=== PATIENT | female | born 1975 | race African-American/Black ===

== ENCOUNTER 2020-07-07 13:13 | Inpatient (IN) ==
[2020-07-07 14:14] LABS: Basophils % 0.1 % (0.0-0.8); Eosinophils # 0.2 10*3/uL (0.0-0.87); Eosinophils % 1.7 % (0.00-10.9); Hemoglobin 14.2 GM/DL (12.0-16.0); Immature Granulocytes % 0.4 %; Immature Granulocytes Absolute 0.05 #; Lymphocytes # 2.9 10*3/uL (1.4-4.0); Lymphocytes % 21.4 % (21.3-54.2); Mean Platelet Volume 9.9 FL (9.6-12.0); Monocytes % 10.1 % (1.7-12.7); Neutrophils % 66.3 % (38.7-73.9); Platelet Count 302 T/CUMM (130-400); Red Blood Count 5.27 MC/CUMM (3.8-5.5); White Blood Count 13.4 T/CUMM (4-12)
[2020-07-07 14:22] LABS: INR 1.1; PT Patient Result 11.9 SECS (9.8-11.9); Partial Thromboplastin Time 28.5 SECS (23.9-33.8)
[2020-07-07 14:29] LABS: Albumin 3.4 G/DL (3.4-5.0); Bilirubin,Total 0.6 MG/DL (0.2-1.0); Calcium 8.6 MG/DL (8.5-10.1); Osmolality,Calculated 278.3 MOS/KG (273-304); Total Protein 7.7 G/DL (6.4-8.3)
[2020-07-07 14:40] LABS: Ferritin 30.5 ng/ml (8-252)
[2020-07-07 16:21] LABS: ABG Base Excess 14.2 MMOL/L (-2.5-2.5); ABG HCO3 37.9 MMOL/L (20-26); ABG Oxygen Saturation 91.8 % (95-100); ABG PH 7.214 (7.35-7.45); ABG TCO2 44.1 MMOL/L (23-27)
[2020-07-07 16:59] LABS: ABG Base Excess 12.9 MMOL/L (-2.5-2.5); ABG HCO3 36.8 MMOL/L (20-26); ABG Oxygen Saturation 97.8 % (95-100); ABG TCO2 44.6 MMOL/L (23-27)
[2020-07-07 17:01] LABS: ABG PH 7.167 (7.35-7.45)
[2020-07-07] MEDS ORDERED: DEXTROSE 50% 25 GM/50 ML VIAL IV PRN (17:53)
[2020-07-07] MEDS ORDERED: GLUCAGON 1 MG VIAL IM PRN (17:53)
[2020-07-07] MEDS: ALBUTEROL/IPRATROPIUM 3 ML NEB RESP TX SCH (20:40)
[2020-07-07] MEDS: ENOXAPARIN 40 MG/0.4 ML SYRINGE SUBCUT SCH (21:29)
[2020-07-08] MEDS: ALBUTEROL/IPRATROPIUM 3 ML NEB RESP TX SCH ×4 (01:29→18:57)
[2020-07-08 03:55] LABS: Allen Test Positive; Pt O2 Delivery Device BIPAP
[2020-07-08 03:57] LABS: ABG Base Excess 18.6 MMOL/L (-2.5-2.5); ABG HCO3 50.1 MMOL/L (20-26); ABG Oxygen Saturation 95.8 % (95-100); ABG PH 7.311 (7.35-7.45); ABG PO2 86.7 MM HG (80-95); ABG TCO2 53.2 MMOL/L (23-27)
[2020-07-08 05:03] LABS: ABG PCO2 101.5 MM HG (35-48)
[2020-07-08 06:52] LABS: Calcium 8.8 MG/DL (8.5-10.1); Osmolality,Calculated 273.5 MOS/KG (273-304)
[2020-07-08] MEDS: PANTOPRAZOLE 40 MG TABLET PO SCH (10:51)
[2020-07-08] MEDS ORDERED: FUROSEMIDE 40 MG/4 ML VIAL IV ONE (15:00)
[2020-07-08] MEDS: methylPREDNISolone SOD SUC 40 MG/1 ML VIAL IV SCH ×2 (17:12→22:18)
[2020-07-08] MEDS: ENOXAPARIN 40 MG/0.4 ML SYRINGE SUBCUT SCH (22:18)
[2020-07-09] MEDS: ALBUTEROL/IPRATROPIUM 3 ML NEB RESP TX SCH ×2 (00:49→07:30)
[2020-07-09] MEDS ORDERED: methylPREDNISolone SOD SUC 40 MG/1 ML VIAL ONE (06:41)
[2020-07-09] MEDS: methylPREDNISolone SOD SUC 40 MG/1 ML VIAL IV SCH ×2 (06:41→14:27)
[2020-07-09] MEDS ORDERED: THEOPHYLLINE ER (24 HR) 400 MG CAPSULE PO SCH (09:00)
[2020-07-09] MEDS: PANTOPRAZOLE 40 MG TABLET PO SCH (10:35)
[2020-07-09 11:59] VITALS: BP 141/78
== END 2020-07-09 15:55 | disposition home or self-care (01) | DRG 206 ==
LOC: N.ED 13:13 → SUATTDRO 18:10 → N.EDINP 18:10 → N.3E 19:58
PROVIDERS: ADMIT Internal Medicine; ATTEND Internal Medicine

== ENCOUNTER 2021-03-26 11:19 | Observation (INO) ==
[2021-03-26 11:56] LABS: Basophils % 0.1 % (0.0-0.8); Eosinophils # 0.2 10*3/uL (0.0-0.87); Eosinophils % 2.4 % (0.00-10.9); Hematocrit 35.7 VOL% (35.7-47.0); Immature Granulocytes % 0.6 %; Immature Granulocytes Absolute 0.05 #; Mean Corpuscular HGB Conc 30.8 GM/DL (32-36); Mean Corpuscular Volume 90.4 FL (87-102); Monocytes % 6.1 % (1.7-12.7); Neutrophils % 67.8 % (38.7-73.9); Platelet Count 282 T/CUMM (130-400); Red Blood Count 3.95 MC/CUMM (3.8-5.5); Red Cell Distribution Width 14.6 % (9.3-17.3); White Blood Count 8.7 T/CUMM (4-12)
[2021-03-26 12:17] LABS: Albumin 3.5 G/DL (3.4-5.0); Bilirubin,Total 0.4 MG/DL (0.20-1.00); Calcium 8.8 MG/DL (8.5-10.1); Osmolality,Calculated 281.1 MOS/KG (273-304); Potassium 3.8 MMOL/L (3.5-5.1); Total Protein 7.6 G/DL (6.4-8.2)
[2021-03-26 13:27] LABS: Bacteria,Urine Occasional /HPF (Few); Bilirubin,Urine Negative (Negative); Blood, Urine Negative (Negative); Glucose,Urine (UA) Negative (Negative); Hyaline Casts,Urine 1 /LPF (0-3); Ketones,Urine Negative (Negative); Mucus,Urine Occasional /LPF (Occasional); Nitrite,Urine Negative (Negative); Protein,Urine Negative; Squamous Epithelial Cell,Urine Few /HPF (0-10); Urine Appearance Slightly Hazy (Clear); Urine Color Yellow (Yellow); Urine Specific Gravity 1.014 (1.001-1.035); Urine Urobilinogen < 2.0 EU/DL (0.2-1.0)
[2021-03-26 13:31] LABS: Barbiturates Screen,Urine Negative (Negative); Benzodiazepines Screen,Urine Negative (Negative); Cannabinoid Screen,Urine Negative (Negative); Opiate Screen,Urine Negative (Negative); Phencyclidine Screen,Urine Negative (Negative)
[2021-03-26] MEDS ORDERED: cloNIDine 0.1 MG TABLET ONE (13:42)
[2021-03-26] MEDS ORDERED: cloNIDine 0.1 MG TABLET PO STA (13:47)
[2021-03-26] MEDS ORDERED: ONDANSETRON 4 MG/2 ML VIAL IV PRN (15:06)
[2021-03-26] MEDS ORDERED: GLUCAGON 1 MG VIAL IM PRN (15:06)
[2021-03-26] MEDS ORDERED: ACETAMINOPHEN 325 MG TABLET PO PRN (15:06)
[2021-03-26] MEDS ORDERED: DEXTROSE 50% 25 GM/50 ML VIAL IV PRN (15:06)
[2021-03-26] MEDS ORDERED: ALBUTEROL 2.5 MG/3 ML NEB RESP TX PRN (15:11)
[2021-03-26] MEDS ORDERED: atenoloL 25 MG TABLET PO SCH (15:30)
[2021-03-26] MEDS: amLODIPine 10 MG TABLET PO SCH (16:00)
[2021-03-26] MEDS: INSULIN REGULAR 100 UNIT/ML SUBCUT SCH ×2 (16:20→20:53)
[2021-03-26] MEDS: GABAPENTIN 300 MG CAPSULE PO SCH (20:52)
[2021-03-26] MEDS: DOCUSATE SODIUM 100 MG CAPSULE PO SCH (20:53)
[2021-03-27] MEDS: INSULIN REGULAR 100 UNIT/ML SUBCUT SCH ×4 (07:59→22:43)
[2021-03-27] MEDS: amLODIPine 10 MG TABLET PO SCH (09:36)
[2021-03-27] MEDS: ASPIRIN EC 81 MG TABLET PO SCH (09:36)
[2021-03-27] MEDS: PANTOPRAZOLE 40 MG TABLET PO SCH (09:36)
[2021-03-27] MEDS: atenoloL 25 MG TABLET PO SCH (09:36)
[2021-03-27] MEDS: DOCUSATE SODIUM 100 MG CAPSULE PO SCH ×2 (09:36→21:36)
[2021-03-27] MEDS: lisinopriL 20 MG TABLET PO SCH (09:36)
[2021-03-27] MEDS ORDERED: ROSUVASTATIN 20 MG TABLET PO SCH (21:00)
[2021-03-27] MEDS: GABAPENTIN 300 MG CAPSULE PO SCH (21:36)
[2021-03-28 05:35] LABS: Basophils % 0.2 % (0.0-0.8); Eosinophils # 0.2 10*3/uL (0.0-0.87); Eosinophils % 2.4 % (0.00-10.9); Hematocrit 33.1 VOL% (35.7-47.0); Hemoglobin 10.2 GM/DL (12.0-16.0); Immature Granulocytes % 0.4 %; Immature Granulocytes Absolute 0.04 #; Lymphocytes # 2.3 10*3/uL (1.4-4.0); Mean Corpuscular HGB Conc 30.8 GM/DL (32-36); Mean Corpuscular Volume 91.4 FL (87-102); Mean Platelet Volume 10.3 FL (9.6-12.0); Monocytes % 8.7 % (1.7-12.7); Neutrophils % 63.3 % (38.7-73.9); Platelet Count 258 T/CUMM (130-400); Red Blood Count 3.62 MC/CUMM (3.8-5.5); Red Cell Distribution Width 14.5 % (9.3-17.3); White Blood Count 9.3 T/CUMM (4-12)
[2021-03-28 06:08] LABS: Calcium 8.7 MG/DL (8.5-10.1); Osmolality,Calculated 283.1 MOS/KG (273-304); Potassium 3.8 MMOL/L (3.5-5.1)
[2021-03-28 09:01] VITALS: BP 138/97
[2021-03-28] MEDS: amLODIPine 10 MG TABLET PO SCH (09:14)
[2021-03-28] MEDS: atenoloL 25 MG TABLET PO SCH (09:15)
[2021-03-28] MEDS: PANTOPRAZOLE 40 MG TABLET PO SCH (09:15)
[2021-03-28] MEDS: DOCUSATE SODIUM 100 MG CAPSULE PO SCH (09:15)
[2021-03-28] MEDS: ASPIRIN EC 81 MG TABLET PO SCH (09:15)
[2021-03-28] MEDS: lisinopriL 20 MG TABLET PO SCH (09:15)
[2021-03-28] MEDS: INSULIN REGULAR 100 UNIT/ML SUBCUT SCH ×2 (10:45→13:05)
== END 2021-03-28 15:00 | disposition home or self-care (01) ==
LOC: N.ED 11:19 → N.EDINP 11:19 → N.TELEN 14:47
PROVIDERS: ADMIT Family Medicine; ATTEND Family Medicine

== ENCOUNTER 2021-09-01 12:44 | Observation (INO) ==
[2021-09-01 13:48] LABS: Albumin 3.6 G/DL (3.4-5.0); Bilirubin,Total 0.4 MG/DL (0.20-1.00); Calcium 9.5 MG/DL (8.5-10.1); Potassium 3.5 MMOL/L (3.5-5.1); Total Protein 8.4 G/DL (6.4-8.2)
[2021-09-01 14:00] LABS: Basophils % 0.2 % (0.0-0.8); Eosinophils # 0.2 10*3/uL (0.0-0.87); Eosinophils % 1.9 % (0.00-10.9); Hematocrit 38.1 VOL% (35.7-47.0); Hemoglobin 11.7 GM/DL (12.0-16.0); Immature Granulocytes % 0.4 %; Immature Granulocytes Absolute 0.04 #; Lymphocytes # 2.5 10*3/uL (1.4-4.0); Lymphocytes % 22.4 % (21.3-54.2); Mean Corpuscular HGB Conc 30.7 GM/DL (32-36); Mean Corpuscular Volume 91.1 FL (87-102); Mean Platelet Volume 10.2 FL (9.6-12.0); Monocytes % 5.9 % (1.7-12.7); Neutrophils % 69.2 % (38.7-73.9); Platelet Count 294 T/CUMM (130-400); Red Blood Count 4.18 MC/CUMM (3.8-5.5); Red Cell Distribution Width 14.4 % (9.3-17.3)
[2021-09-01] MEDS ORDERED: ACETAMINOPHEN 325 MG TABLET PO PRN (16:19)
[2021-09-01] MEDS ORDERED: ONDANSETRON 4 MG/2 ML VIAL IV PRN (16:19)
[2021-09-01] MEDS ORDERED: metFORMIN 500 MG TABLET PO SCH (17:00)
[2021-09-01 17:03] LABS: Bacteria,Urine Occasional /HPF (Few); Glucose,Urine (UA) Negative (Negative); Ketones,Urine Negative (Negative); Mucus,Urine Occasional /LPF (Occasional); Nitrite,Urine Negative (Negative); Protein,Urine Negative; RBC,Urine 4 /HPF (0-4); Squamous Epithelial Cell,Urine Occasional /HPF (0-10); Urine Appearance Clear (Clear); Urine Color Yellow (Yellow); Urine pH 7.5 (4.5-8.0)
[2021-09-01 17:04] LABS: Bilirubin,Urine Negative (Negative); Blood, Urine Trace mg/dL (Negative); Urine Urobilinogen 0.2 EU/DL (<2.0)
[2021-09-01] MEDS: THEOPHYLLINE ER 300 MG TABLET PO SCH (17:46)
[2021-09-01] MEDS ORDERED: ROSUVASTATIN 20 MG TABLET PO SCH (21:00)
[2021-09-01] MEDS ORDERED: GABAPENTIN 600 MG TABLET PO SCH (21:00)
[2021-09-02 01:07] LABS: Basophils % 0.3 % (0.0-0.8); Eosinophils # 0.2 10*3/uL (0.0-0.87); Hematocrit 34.4 VOL% (35.7-47.0); Hemoglobin 10.8 GM/DL (12.0-16.0); Immature Granulocytes % 0.3 %; Immature Granulocytes Absolute 0.03 #; Lymphocytes # 2.9 10*3/uL (1.4-4.0); Mean Corpuscular HGB Conc 31.4 GM/DL (32-36); Mean Corpuscular Volume 88.9 FL (87-102); Mean Platelet Volume 10.3 FL (9.6-12.0); Monocytes % 6.9 % (1.7-12.7); Neutrophils % 65.5 % (38.7-73.9); Platelet Count 267 T/CUMM (130-400); Red Blood Count 3.87 MC/CUMM (3.8-5.5); Red Cell Distribution Width 14.2 % (9.3-17.3); White Blood Count 11.5 T/CUMM (4-12)
[2021-09-02 01:21] LABS: Albumin 2.8 G/DL (3.4-5.0); Bilirubin,Total 0.4 MG/DL (0.20-1.00); Calcium 8.7 MG/DL (8.5-10.1); Potassium 3.6 MMOL/L (3.5-5.1)
[2021-09-02] MEDS ORDERED: PANTOPRAZOLE 40 MG TABLET PO SCH (09:00)
[2021-09-02] MEDS ORDERED: lisinopriL 20 MG TABLET PO SCH (09:00)
[2021-09-02] MEDS ORDERED: amLODIPine 10 MG TABLET PO SCH (09:00)
[2021-09-02] MEDS ORDERED: atenoloL 25 MG TABLET PO SCH (09:00)
[2021-09-02] MEDS: THEOPHYLLINE ER 300 MG TABLET PO SCH (09:32)
[2021-09-02 12:51] VITALS: BP 116/63
== END 2021-09-02 15:53 | disposition home or self-care (01) ==
LOC: N.EDINP 12:44 → N.ED 12:44 → N.TELES 16:19
PROVIDERS: ADMIT Family Medicine; ATTEND Family Medicine